=== PATIENT | female | born 1975 | race Caucasian/White ===

== ENCOUNTER 2017-04-13 11:17 | Outpatient (CLI) | payer OTHER ==
[2017-04-13 13:49] LABS: Eosinophils % (Auto) 1.9 % (0.0-4.3); Hematocrit 41.7 % (30.3-42.9); Hemoglobin 13.6 gm/dl (10.1-14.3); Mean Corpuscular HGB Conc 33 % (30-34); Mean Corpuscular Hemoglobin 27 pg (28-32); Mean Corpuscular Volume 82 fl (79-97); Platelet Count 205 K/mm3 (140-440); Red Blood Count 5.06 M/mm3 (3.65-5.03); Red Cell Distribution Width 15.1 % (13.2-15.2); White Blood Count 4.1 K/mm3 (4.5-11.0)
[2017-04-13 13:55] LABS: Alanine Aminotransferase 78 units/L (7-56); Albumin 4.3 g/dL (3.9-5); Albumin/Globulin Ratio 1.1 %; Alkaline Phosphatase 133 units/L (35-129); Anion Gap 17 mmol/L; Blood Urea Nitrogen 10 mg/dL (7-17); Carbon Dioxide 23 mmol/L (22-30); Chloride 99.9 mmol/L (98-107); Cholesterol 206 mg/dL (50-199); Glucose 84 mg/dL (65-100); HDL Cholesterol 89 mg/dL (40-59); LDL Cholesterol,Direct 108 mg/dL (50-130); Potassium 4.1 mmol/L (3.6-5.0); Sodium 136 mmol/L (137-145); Total Protein 8.1 g/dL (6.3-8.2); Triglycerides 48 mg/dL (2-149); Uric Acid 2.3 mg/dL (3.5-7.6)
[2017-04-17 01:32] LABS: Vitamin D, 25-OH, Total 16 ng/mL (30-100)
== END 2017-04-13 11:18 | disposition home or self-care (01) ==
LOC: LABHHL 11:17
PROVIDERS: ATTEND Internal Medicine
DX: Z01.419 Encounter for gynecological examination (general) (routine) without abnormal findings (principal); E55.9 Vitamin D deficiency, unspecified; M54.5 Low back pain; R42 Dizziness and giddiness
CPT/HCPCS: 36415; 80053; 80061; 82306; 82607; 83036; 84550; 85025

== ENCOUNTER 2017-04-19 11:07 | Outpatient (CLI) | payer OTHER ==
--- NOTE | 2017-04-19 15:17 | Mammography Report ---
BILATERAL DIGITAL SCREENING MAMMOGRAM with CAD: 04/19/17 11:07:00 CLINICAL: Baseline screening. FINDINGS: The breasts are extremely dense, which may obscure small masses and limit the sensitivity of mammography. No mass, architectural distortion or suspicious calcifications. IMPRESSION: No mammographic evidence of malignancy. BI-RADS CATEGORY: 1 - - Negative RECOMMENDATION: Routine mammographic screening in one year. COMMENT: Patient follow-up letters are generated by our [employer] application.
== END 2017-04-19 11:08 | disposition home or self-care (01) ==
LOC: MAMMO 11:07
PROVIDERS: ATTEND Internal Medicine
DX: Z12.31 Encounter for screening mammogram for malignant neoplasm of breast (principal)
CPT/HCPCS: 77067; G0202

== ENCOUNTER 2019-04-12 10:05 | Outpatient (CLI) | payer OTHER ==
--- NOTE | 2019-04-15 12:07 | Mammography Report ---
BILATERAL DIGITAL SCREENING MAMMOGRAM WITH CAD HISTORY: SCREENING MAMMO. Needs breast implants since the last exam. TECHNIQUE: Routine digital mammographic imaging performed. She would not tolerate implant displaceme nt since the implants are only about 6 months old. This examination was interpreted with the benefit of Computer-aided Detection analysis. COMPARISON: 04/19/2017 FINDINGS: Breast Density: Heterogeneously dense breast parenchymal pattern which somewhat lessens the sensitivi ty of the evaluation. Digital routine CC and MLO views demonstrate no mammographic evidence of malignancy. Bilateral impla nts are in place.. IMPRESSION: No mammographic evidence of malignancy. If the clinical examination remains stable, recommend bilate ral mammogram in approximately one year. BIRADS 1: Negative. FURTHER INFORMATION: According to the [employer], yearly mammograms are recommend ed starting at age 40 and continuing as long as a woman is in good health. Clinical Breast Exams shou ld be part of a periodic health exam-about every 3 years for women in their 20s and 30s and every yea r for women 40 and over. Breast self exam is an option for women starting in their 20s. Any breast ch tami noted on a breast self exam should be reported promptly to the patient's healthcare provider. Br east MRI is recommended for women with an approximately 20-25% or greater lifetime risk of breast can cer, including women with a strong family history of breast or ovarian cancer and women who have been treated for Hodgkin's disease. A negative Mammography report should not discourage follow up or biopsy of a clinically significant f inding and/or abnormality. Dense breast tissue may obscure small neoplasms. The patient will be entered into a reminder system with a target due date for the next screening mamm ogram. Signer Name: Osito Cuellar MD Signed: 04/15/2019 12:02 PM Workstation Name: [id number]
== END 2019-04-12 10:06 | disposition home or self-care (01) ==
LOC: MAMMO 10:05
PROVIDERS: ATTEND Specialist
DX: Z12.31 Encounter for screening mammogram for malignant neoplasm of breast (principal)
CPT/HCPCS: 77067